=== PATIENT | female | born 2000 | race African-American/Black ===

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

== ENCOUNTER 2021-02-28 14:08 | Emergency (ER) | payer MEDICAID ==
[2021-02-28 14:40] LABS: Bilirubin Negative (Negative); Blood, Urine Negative (Negative); Glucose, Urine (Dipstick) Negative (Negative); Ketone, Urine Negative (Negative); Leukocyte Negative (Negative); Nitrite Negative (Negative); Protein, Urine (Dipstick) Negative (Neg-Trace); Urobilinogen 0.2 mg/dL (Less than 2); pH, Urine 6.5 (5.0-9.0)
[2021-02-28 14:42] LABS: Clarity SL HAZY (Clear); Specific Gravity, Urine 1.022 (1.002-1.036)
[2021-02-28 14:43] LABS: Pregnancy Test - Urine (BHCG) Negative (Negative); Pregu Control Background? CLEAR/WHITE (CLR/WHITE); Pregu Control Bar Appear? YES (CONTROL BAR); Specific Gravity 1.022 (1.002-1.036)
== END 2021-02-28 14:55 | disposition home or self-care (01) ==
LOC: NAV ERS 14:08
DX: R35.0 Frequency of micturition (principal); J45.909 Unspecified asthma, uncomplicated
CPT/HCPCS: 81003; 81025; 99283

== ENCOUNTER 2021-06-01 16:52 | Emergency (ER) | payer MEDICAID | END 2021-06-01 17:20 | disposition home or self-care (01) | LOC: NAV ERS 16:52 | DX: O99.711 Diseases of the skin and subcutaneous tissue complicating pregnancy, first trimester (principal); L03.031 Cellulitis of right toe; Z3A.12 12 weeks gestation of pregnancy; O99.511 Diseases of the respiratory system complicating pregnancy, first trimester; J45.909 Unspecified asthma, uncomplicated | CPT/HCPCS: 99283 ==

== ENCOUNTER 2021-09-09 00:24 | Emergency (ER) | payer MEDICAID, OTHER ==
[2021-09-09] MEDS ORDERED: Tetracaine 0.5% PF 4 ML BOT ONE (00:46)
[2021-09-09] MEDS ORDERED: Fluorescein Opthalmic Strip ONE (00:46)
[2021-09-09] MEDS ORDERED: Gentamicin Ophth Soln 0.3% 5 ml Bottle ONE (00:58)
== END 2021-09-09 01:20 | disposition home or self-care (01) ==
LOC: NAV ERS 00:24
DX: H18.821 Corneal disorder due to contact lens, right eye (principal)
CPT/HCPCS: 99283